=== PATIENT | male | born 1975 ===

== ENCOUNTER 2022-05-07 19:39 | Emergency (ER) | payer SELFPAY ==
[~2022-05-07] VITALS: Ht 167.6 cm; Wt 80.7 kg
[2022-05-07 20:09] VITALS: BP 128/79
--- NOTE | 2022-05-07 20:14 | NUR ---
TO LOBBY FOLLOWING TRIAGE, UA OBTAINED
--- NOTE | 2022-05-07 20:17 | NUR ---
PT TO BED #6
--- NOTE | 2022-05-07 20:20 | NUR ---
46/M BIB SELF C/C RIGHT FLANK PAIN X1DAY. PATIETN REPORTS NAUSEA. DENIES URINARY SYMPTOMS/V/D/FEVER/CHILLS. TOOK IBUPROFEN THIS MORNING WITH NO RELIEF. PATIENT AAOX4 AND AMBULATORY, PLACED IN BED. BED LOW AND LOCKED. DB SIDE RAILS FOR SAFETY. URINE COLLECTED AND HANDED TO LAB. DENIES PMHX, RX, ALLERGIES
--- NOTE | 2022-05-07 20:41 | NUR ---
Patient being evaluated by physician at bedside.
[2022-05-07 21:08] LABS: BASOPHILS % (AUTO) 0.2 % (0.0-2.0); EOSINOPHILS # (AUTO) 0.1 K/uL (0-0.4); EOSINOPHILS % (AUTO) 0.6 % (0.0-4.0); HEMATOCRIT 38.7 % (36-52); HEMOGLOBIN 13.6 g/dL (12.0-18.0); LYMPHOCYTES % (AUTO) 20.8 % (20.5-51.1); MEAN CORPUSCULAR HEMOGLOBIN 35 pg (27-31); MEAN CORPUSCULAR HGB CONC 35 g/dL (33-37); MEAN CORPUSCULAR VOLUME 97.8 fL (80-94); MONOCYTES # (AUTO) 0.8 K/uL (0.8-1.0); MONOCYTES % (AUTO) 8.6 % (1.7-9.3); NEUTROPHILS # (AUTO) 6.7 K/uL (1.8-7.7); NEUTROPHILS % (AUTO) 69.8 % (42.2-75.2); PLATELET COUNT (AUTO) 152 K/uL (140-450); RED BLOOD CELL COUNT(AUTO) 3.95 MIL/uL (4.20-6.10); RED CELL DISTRIBUTION WIDTH 12.8 % (11.6-13.7); WHITE BLOOD COUNT (AUTO) 9.6 K/uL (4.8-10.8)
[2022-05-07] MEDS ORDERED: MORPHINE SULFATE 2 MG/ML SYR IM STA (21:15)
[2022-05-07] MEDS ORDERED: KETOROLAC 30 MG/ML VIAL IM ONE (21:15)
[2022-05-07 21:32] LABS: ALBUMIN 3.8 g/dL (3.4-5.0); ANION GAP 11.9 (8-16); CARBON DIOXIDE 29.8 mmol/L (21-32); CREATININE 1.8 mg/dL (0.6-1.3); POTASSIUM 3.7 mmol/L (3.5-5.1); TOTAL BILIRUBIN 0.4 mg/dL (0.0-1.0)
[2022-05-07] MEDS ORDERED: NACL 0.9% 1,000 ML IV ONE (21:35)
[2022-05-07] MEDS ORDERED: ONDA-188 PO (21:59)
[2022-05-07] MEDS ORDERED: ACET-8386 PO (21:59)
[2022-05-07] MEDS ORDERED: TAMS0.4C96 PO (21:59)
[2022-05-07] MEDS ORDERED: IBUP-2213 PO (21:59)
--- NOTE | 2022-05-07 22:10 | NUR ---
IV 18G R AC ESTABLISHED. IVF INITIATED ORDERED. TOLERATED WELL.
[2022-05-07 22:54] LABS: BILIRUBIN,URINE NEGATIVE (NEGATIVE); BLOOD, URINE NEGATIVE (NEGATIVE); LEUKOCYTE ESTERASE ,URINE NEGATIVE (NEGATIVE); NITRITE, URINE NEGATIVE (NEGATIVE); PH,URINE 5.5 (5.0-9.0); UGLUCOSE NEGATIVE (NEGATIVE)
[2022-05-07 23:11] LABS: APPEARANCE,URINE HAZY (CLEAR); COLOR,URINE YELLOW (YELLOW)
[2022-05-07 23:17] LABS: RBC,URINE 0-5 /HPF (0-5); WBC,URINE 0-5 /HPF (0-5)
[2022-05-07 23:18] LABS: URIC ACID CRYSTALS,URINE 0-10 /HPF (None Seen)
--- NOTE | 2022-05-08 00:02 | NUR ---
PT AMBULATED TO RR AND BACK TO BED
[2022-05-08 02:22] VITALS: BP 106/69
--- NOTE | 2022-05-08 02:22 | NUR ---
Patient discharged with v/s stable. Written and verbal after care instructions given and explained. Patient alert, oriented and verbalized understanding of instructions. Ambulatory with steady gait. All questions addressed prior to discharge. ID band removed. Patient advised to follow up with PMD. Rx of NORCO, IBUPROFEN, ZOFRAN, TAMSULOSIN given. Patient educated on indication of medication including possible reaction and side effects. Opportunity to ask questions provided and answered.
== END 2022-05-08 02:22 | disposition home or self-care (01) ==
LOC: MED 19:39
DX: N20.1 Calculus of ureter (principal)
CPT/HCPCS: 36415; 74176; 80053; 81001; 83690; 85025; 87086; 96360; 96372; 99284; J1885; J2270; J7030